=== PATIENT | male | born 1955 | race Caucasian/White ===

== ENCOUNTER 2019-08-11 16:19 | Emergency (ER) | payer OTHER ==
[2019-08-11 16:38] VITALS: BP 134/79; PULSE 74; RESP 16; TEMP 98.5
[2019-08-11] MEDS ORDERED: RABIES IMMUNE GLOB 300 UNIT/ML 5 ML VIAL IM ONE (16:49)
[2019-08-11] MEDS ORDERED: RABIES VACCINE (PCEC) 2.5 UNIT KIT IM ONE (16:49)
[2019-08-11] MEDS ORDERED: RABIES IMMUNE GLOB 300 UNIT/ML 1 ML VIAL IM ONE (17:00)
--- NOTE | 2019-08-11 17:59 | ED ---
General Adult HPI - General Chief complaint: Animal Bite Stated complaint: Rabies exposure Time Seen by Provider: 08/11/19 16:44 Source: patient, RN notes reviewed, old records reviewed Mode of arrival: ambulatory Limitations: no limitations - History of Present Illness Initial comments: 64-year-old male patient is ED for evaluation of possible rabies exposure. Patient reports that approximately one week ago he found a bat acting irregular in the bathtub. Patient states that bat appeared sick, had very limited movement. Patient reports that he scooped that bat into a container full of nuts. Did not touch bat with bare hands. Patient then disposed of by shooting it with a air rifle. Patient reports that he did have some debries rebound towards his face after shooting the bat. Denies any bites. Denies any foreign body in eye. Denies other complaints. Patient did transport bat for testing, which was reportedly positive for rabies. Systemic: Pt denies fatigue, fever/chills, rash. Pt denies weakness, night sweats, weight loss. Neuro: Pt denies headache, visual disturbances, syncope or pre-syncope. HEENT: Pt denies ocular discharge or irritation, otalgia, rhinorrhea, pharyngitis or notable lymphadenopathy. Cardiopulmonary: Pt denies chest pain, SOB, heart palpitations, dyspnea on exertion. Abdominal/GI: Pt denies abdominal pain, n/v/d. : Pt denies dysuria, burning w/ urination, frequency/urgency. Denies new onset urinary or bowel incontinence. MSK: Pt denies myalgia, loss of strength or function in extremities. Neuro: Pt denies new onset weakness, paresthesias. - Related Data Allergies Allergy/AdvReac Type Severity Reaction Status Date / Time No Known Allergies Allergy Verified 08/11/19 16:38 Review of Systems ROS Statement: Those systems with pertinent positive or pertinent negative responses have been documented in the HPI. ROS Other: All systems not noted in ROS Statement are negative. Past Medical History Past Medical History: Hyperlipidemia Additional Past Medical History / Comment(s): glaucoma History of Any Multi-Drug Resistant Organisms: None Reported Past Surgical History: Tonsillectomy Additional Past Surgical History / Comment(s): eye surgery Past Psychological History: No Psychological Hx Reported Smoking Status: Never smoker Past Alcohol Use History: None Reported Past Drug Use History: None Reported General Exam - General Exam Comments Initial Comments: Constitutional: NAD, AOX3, Pt has pleasant affect. HEENT: NC/AT, trachea midline, neck supple, no lymphadenopathy. Posterior pharynx non erythematous, without exudates. External ears appear normal, without discharge. Mucous membranes moist. Eyes PERRLA, EOM intact. There is no scleral icterus. No pallor noted. Cardiopulmonary: RRR, no murmurs, rubs or gallops, no JVD noted. Lungs CTAB in anterior and posterior ferguson. No peripheral edema. Abdominal exam: Abdomen soft and non-distended. Abdomen non-tender to palpation in all 4 quadrants. Bowel sounds active in LLQ. No hepatosplenomegaly. No ecchymosis Neuro: CN II-XII grossly intact. No nuchal rigidity. No raccon eyes, no ellison sign, no hemotympanum. No cervical spinal tenderness. MSK: No posterior calf tenderness bilaterally, homans sign negative bilaterally. Posterior tibialis and radial pulse +2 bilaterally. Sensation intact in upper and lower extremities. Full active ROM in upper and lower extremities, 5/5 stregnth. Limitations: no limitations Course Vital Signs 08/11/19 16:34 Temperature 98.5 F Pulse Rate 74 Respiratory 16 Rate Blood Pressure 134/79 O2 Sat by Pulse 97 Oximetry Medical Decision Making - Medical Decision Making 64-year-old male patient comes to ED for evaluation of rabies exposure. Patient will signs stable, afebrile. Physical exam did not display acute pathology. Patient administered rabies vaccine and immunoglobulin. Will be discharged outpatient follow-up for completion of series of vaccines. Will return to ER if condition worsens in anyway. Case discussed in depth with Dr. Kamara. Disposition Clinical Impression: Rabies exposure Disposition: HOME SELF-CARE Instructions (If sedation given, give patient instructions): Animal Bite (ED), Rabies Vaccine (ED), Rabies Immune Globulin (By injection), Rabies (ED), Rabies Vaccine (By injection) Additional Instructions: Patient to adhere to previously discussed treatment plan and will take medication(s) as directed. Patient to follow up with PCP in 1-2 days. Return to ER if condition worsens in anyway. Code to [facility] on days 3, 7, 14 and after administration of initial vaccines for completion of rabies vaccine. 08/14/19 08/18/19 08/25/19 Is patient prescribed a controlled substance at d/c from ED?: No Referrals: Malik Guan MD [Primary Care Provider] - 1-2 days
== END 2019-08-11 18:20 | disposition home or self-care (01) ==
LOC: EC 16:19
DX: Z20.3 Contact with and (suspected) exposure to rabies (principal)
CPT/HCPCS: 90375; 90471; 90675; 96372; 99284